=== PATIENT | male | born 1970 | race Caucasian/White ===

== ENCOUNTER → 2018-12-18 | Outpatient (CLI) | payer BC ==
--- NOTE | 2018-12-19 00:45 | MR ---
EXAMINATION TYPE: MR elbow LT wo con DATE OF EXAM: 12/18/2018 COMPARISON: None HISTORY: Lt elbow pain since Apr 2018 after lifting wood Standard multiplanar, multisequence MRI departmental protocol Multiplanar, multisequence images of the left elbow were acquired. FINDINGS: There is a moderate sized elbow joint effusion. The triceps tendon appears intact. Brachial is tendon is intact. Biceps tendon is intact. There is no evidence of soft tissue mass. Elbow joint s paces are fairly normal. There is no evidence of focal bone destruction. There is no evidence of a fr acture. There is apparent disruption of the lateral collateral ligament on the T1 coronal images. Med ial collateral ligament appears intact. IMPRESSION: Moderate-sized elbow joint effusion. No fracture. There is tear of the lateral collateral ligament at the attachment on the lateral humeral condyle. No evidence of tendon tear.
== END | disposition home or self-care (01) ==
LOC: RADMRIMAIN 08:56
PROVIDERS: ATTEND Orthopaedic Surgery
DX: S53.492A Other sprain of left elbow, initial encounter (principal)

== ENCOUNTER 2024-04-28 15:23 | Emergency (ER) | payer BC ==
[2024-04-28 15:29] LABS: Glucose,Whole Blood 378 mg/dL (70-110)
--- NOTE | 2024-04-28 16:45 | ED ---
General Adult HPI - General Chief complaint: Chest Pain Stated complaint: cardiac arrest Time Seen by Provider: 04/28/24 15:23 Source: EMS, RN notes reviewed, old records reviewed Mode of arrival: EMS - History of Present Illness Initial comments: Is a 54-year-old male who presents emergency department as a cardiac arrest. Patient called 911 and EMS arrived complaining of chest pain onset 20 minutes. Patient may have had a syncopal episode also prior to arrival. When EMS arrived, per EMS he was complaining of chest pain but was unable provide much past medical history. They were able to get him into the EMS rig and start obtaining vital signs and an EKG when the patient went unresponsive and into cardiac arrest. They initiated ACLS protocol immediately, intubated the patient, and administered a total of 2-[address] to the hospital. Patient was then PEA the entire transport time to the hospital, with total downtime prehospital of approximately 10 to 15 minutes. Presents in active cardiac arrest which is when I evaluated the patient in T2. Unknown past medical history from EMS. Per chart, patient has a history of diabetes and hyp ertension.patient arrived to the emergency department at 1520 which is when we assumed care. Review of Systems ROS Statement: Those systems with pertinent positive or pertinent negative responses have been documented in the HPI. ROS Other: All systems not noted in ROS Statement are negative. Past Medical History Past Medical History: Diabetes Mellitus, Hypertension History of Any Multi-Drug Resistant Organisms: Unobtainable Past Surgical History: Unable to Obtain Past Psychological History: Unable to Obtain Smoking Status: Unknown if ever smoked Past Alcohol Use History: Unable to Obtain Past Drug Use History: Unable to Obtain General Exam - General Exam Comments Initial Comments: General: Unresponsive HEAD: No obvious signs of head trauma EYES: Pupils are fixed and dilated to 4 to 5 mm ENT: Endotracheal tube in place. No deviation of the trachea. RESPIRATORY: Auscultated breath sounds with bagging. C/V: Pulseless ABD: Abdomen is nondistended EXT: No obvious deformities SKIN: Extremities are not significantly purple or blue. No obvious rashes NEURO: Unresponsive Course Vital Signs 04/28/24 15:24 O2 Sat by Pulse 99 Oximetry Medical Decision Making - Medical Decision Making Was pt. sent in by a medical professional or institution (, PA, PROOF PRESS OPERATOR, urgent care, hospital, or group home...) When possible be specific @ -No Did you speak to anyone other than the patient for history (EMS, parent, family, police, friend...)? What history was obtained from this source @ -EMS provided the majority of the patient's HPI and history as the patient presented unresponsive in active cardiac arrest. They also received a limited history at the scene. They believe history of hypertension. Patient was comp laining of chest pain onset approximately 20 minutes prior to their arrival. Patient may have had a syncopal episode at home earlier in the day as well. All remaining of the HPI obtained from EMS. Did you review nursing and triage notes (agree or disagree)? Why? @ -I reviewed and agree with nursing and triage notes Were old charts reviewed (outside hosp., previous admission, EMS record, old E KG, old radiological studies, urgent care reports/EKG's, group home records)? Report findings @ -Attempted to review old charts however they are limited in our system. Appears to have a history of hypertension and diabetes. Differential Diagnosis (chest pain, altered mental status, abdominal pain women, abdominal pain men, vaginal bleeding, weakness, fever, dyspnea, syncope, headache, dizziness, GI bleed, back pain, seizure, CVA, palpatations, mental health, musculoskeletal)? @ -Cardiac arrest, TN, electrolyte abnormality, PE, pneumonia, pneumothorax. This list is not all inclusive. EKG interpreted by me (3pts min.). @ -Unable to obtain as patient remained in PEA throughout visit. X-rays interpreted by me (1pt min.). @ -None done CT interpreted by me (1pt min.). @ -None done U/S interpreted by me (1pt. min.). @ -None done What testing was considered but not performed or refused? (CT, X-rays, U/S, labs)? Why? @ -None What meds were considered but not given or refused? Why? @ -None Did you discuss the management of the patient with other professionals (professionals i.e. , PA, PROOF PRESS OPERATOR, lab, RT, psych nurse, psychiatric social worker supervisor, chargeback analyst, teacher, zoology technical officer, case consultant)? Give summary @ -Informed the PCP Dr. Alejandro of the patient's and he expressed understanding. Discussed with ME Eduardo and Danii who [facility]. Was smoking cessation discussed for >3mins.? @ -No Was critical care preformed (if so, how long)? @ -Yes, 34 minutes Were there social determinants of health that impacted care today? How? (Homelessness, low income, unemployed, alcoholism, drug addiction, transportation, low edu. Level, literacy, decrease access to med. care, care home, rehab)? @ -No Was there de-escalation of care discussed even if they declined (Discuss DNR or withdrawal of care, Hospice)? DNR status @ -No What co-morbidities impacted this encounter? (DM, HTN, Smoking, COPD, CAD, Cancer, CVA, ARF, Chemo, Hep., AIDS, mental health diagnosis, sleep apnea, morbid obesity)? @ -Hypertension, diabetes Was patient admitted / discharged? Hospital course, mention meds given and route, prescriptions, significant lab abnormalities, going to OR and other pertinent info. @ -Based on the patient's presentation and physical exam, patient presents to the emergency department active cardiac arrest. Patient has been undergoing ACLS protocol with EMS for the last 10 to 15 minutes. Patient arrested in front of them after complaining of chest pain for approximately 20 minutes prior to that. ACLS protocol started by EMS, patient received a total of 3 epinephrines by EMS and was placed on the Murray device for compressions and was intubated by EMS. Patient arrives approximately 10 to 15 minutes after initiation of this to the emergency department for further resuscitation. EMS only obtained PEA on the monitor during pulse checks. ACLS protocol was continued. Multiple IVs placed and patient. ET tube is appears in satisfactory position and I auscultated bilateral breath sounds. Pulse ox with compressions and bagging registers slightly above 90%. Murray device continued for compressions. Patient received additional 4 amps epinephrine, 3 amps bicarb, 2 amps calcium, 1 D50 amps here in the department. Patient arrived at approximately 1520 to our department. ACLS protocol continued for approximately 21 more minutes with no change in clinical status, continues to be in PEA arrest. At this point, total downtime for the patient was at minimum 30 minutes. No change in clinical status. Remains in PEA arrest. No cardiac activity seen on ultrasound. After discussion, resuscitation team and myself agree further resuscitation is futile. Resuscitation was stopped and time of called at 1541. I updated the patient's family including Sonali that the patient . They did express understanding. I updated the medical director, Eduardo and Danii who requested the body be held at this time. ME number is [facility] [phone]. Patient's family confirmed patient's PCP is Danyel Alejandro. He was notified of the patient's . Undiagnosed new problem with uncertain prognosis? @ -No Drug Therapy requiring intensive monitoring for toxicity (Heparin, Nitro, Insulin, Cardizem)? @ -No Were any procedures done? @ -No Diagnosis/symptom? @ -Cardiac arrest, Acute, or Chronic, or Acute on Chronic? @ -Acute Uncomplicated (without systemic symptoms) or Complicated (systemic symptoms)? @ -Complicated Side effects of treatment? @ -No Exacerbation, Progression, or Severe Exacerbation? @ -No Poses a threat to life or bodily function? How? (Chest pain, USA, TN, pneumonia, PE, COPD, DKA, ARF, appy, cholecystitis, CVA, Diverticulitis, Homicidal, Suicidal, threat to staff... and all critical care pts) @ -Yes, resulted in - Lab Data Lab Results 04/28/24 Range/Units 15:27 POC Glucose (mg/dL) 378 H (70-110) mg/dL POC Glu Treatment Counselor ID Denise Susan Critical Care Time Critical Care Time: Yes Total Critical Care Time: 34 Disposition Clinical Impression: Cardiac arrest, Disposition: Referrals: Nonstaff,Physician [REFERRING] - 1-2 days Time of Disposition: 15:41 Preliminary Cause of : cardiac arrest
== END 2024-04-28 19:04 | disposition expired ==
LOC: EC 15:23
DX: I46.9 Cardiac arrest, cause unspecified (principal); I10 Essential (primary) hypertension; E11.9 Type 2 diabetes mellitus without complications
CPT/HCPCS: 36415; 92950; 99291